=== PATIENT | female | born 1975 | race Caucasian/White ===

== ENCOUNTER → 2017-06-25 | Outpatient (CLI) | payer BC ==
--- NOTE | 2017-06-26 09:56 | MM ---
Reason for exam: screening (asymptomatic). Last mammogram was performed 1 year and 5 months ago. History: Family history of breast cancer in 2 maternal aunts. Took hormonal contraceptives for 6 months beginning at age 17. Physical Findings: A clinical breast exam by your physician is recommended on an annual basis and results should be correlated with mammographic findings. MG Screening Mammo w CAD Bilateral CC and MLO view(s) were taken. Prior study comparison: January 26, 2016, bilateral MG screening mammo w CAD. January 16, 2014, CAD bilateral diagnostic mammogram. February 23, 2012, CAD bilateral diagnostic mammogram. There are scattered fibroglandular densities. There is no discrete abnormality. ASSESSMENT: Negative, BI-RAD 1 RECOMMENDATION: Routine screening mammogram of both breasts in 1 year.
== END | disposition home or self-care (01) ==
LOC: RADMAMWWP 09:11
PROVIDERS: ATTEND Family Medicine
DX: Z12.31 Encounter for screening mammogram for malignant neoplasm of breast (principal)

== ENCOUNTER → 2018-07-11 | Outpatient (CLI) | payer BC ==
--- NOTE | 2018-07-16 09:55 | MM ---
Reason for exam: screening (asymptomatic). Last mammogram was performed 1 year and 1 month ago. History: Family history of breast cancer in 2 maternal aunts. Took hormonal contraceptives for 6 months beginning at age 17. Physical Findings: A clinical breast exam by your physician is recommended on an annual basis and results should be correlated with mammographic findings. MG 3D Screening Mammo W/Cad Bilateral CC and MLO view(s) were taken. Prior study comparison: June 25, 2017, bilateral MG screening mammo w CAD. January 26, 2016, bilateral MG screening mammo w CAD. There are scattered fibroglandular densities. There is a lower outer quadrant mass at middle depth on the left. ASSESSMENT: Incomplete: need additional imaging evaluation, BI-RAD 0 RECOMMENDATION: Special view mammogram of the left breast. If lesion persists on supplemental views, image directed ultrasound is recommended. [facility] will attempt to contact patient to return for supplemental views and ultrasound if indicated.
== END | disposition home or self-care (01) ==
LOC: RADMAMWWP 09:26
PROVIDERS: ATTEND Family Medicine
DX: Z12.31 Encounter for screening mammogram for malignant neoplasm of breast (principal)
CPT/HCPCS: 77063; 77067

== ENCOUNTER → 2018-08-02 | Outpatient (CLI) | payer BC ==
--- NOTE | 2018-08-05 09:52 | MM ---
Reason for exam: additional evaluation requested from abnormal screening. Last mammogram was performed 1 month ago. History: Family history of breast cancer in 2 maternal aunts. Took hormonal contraceptives for 6 months beginning at age 17. Physical Findings: Nurse did not find any significant physical abnormalities on exam. MG 3D Work Up W/Cad LT Spot compression CC, spot compression MLO, and LM view(s) were taken of the left breast. Prior study comparison: July 11, 2018, bilateral MG 3d screening mammo w/cad. June 25, 2017, bilateral MG screening mammo w CAD. There are scattered fibroglandular densities. No distinct lesion persists on additional views. These results were verbally communicated with the patient and result sheet given to the patient on 08/02/18. ASSESSMENT: Benign, BI-RAD 2 RECOMMENDATION: Return to routine screening mammogram schedule for both breasts.
== END | disposition home or self-care (01) ==
LOC: RADMAMWWP 14:52
PROVIDERS: ATTEND Family Medicine
DX: R92.8 Other abnormal and inconclusive findings on diagnostic imaging of breast (principal)
CPT/HCPCS: 77061; 77065

== ENCOUNTER → 2019-08-01 | Outpatient (CLI) | payer BC ==
--- NOTE | 2019-08-02 14:23 | US ---
EXAMINATION TYPE: US pelvis complete transvag DATE OF EXAM: 08/01/2019 COMPARISON: NONE CLINICAL HISTORY: N85.2 Enlarged uterusUterine ablation 2010 enlarged uterus.. TECHNIQUE: Transvaginal (TV) and Transabdominal (TA) . Transabdominal sonographic images of the pel vis were acquired. Transvaginal sonographic images were medically necessary to better assess the fol lowing anatomy: Ovaries Date of LMP: Years ago EXAM MEASUREMENTS: Uterus: 9.5 x 3.5 x 4.3 cm Endometrial Stripe: Not well visualized due to ablation. 1. Uterus: Anteverted Heterogenous 2. Endometrium: Not well visualized due to ablation 3. Right Ovary: Obscured by overlying bowel gas 4. Left Ovary: Obscured by overlying bowel gas 5. Bilateral Adnexa: wnl 6. Posterior cul-de-sac: wnl IMPRESSION: 1. Normal-appearing pelvic ultrasound post uterine endometrial canal ablation
== END | disposition home or self-care (01) ==
LOC: RADUSWWP 16:17
PROVIDERS: ATTEND Family Medicine
DX: N85.2 Hypertrophy of uterus (principal)
CPT/HCPCS: 76830; 76856

== ENCOUNTER → 2019-08-12 | Outpatient (CLI) | payer BC ==
--- NOTE | 2019-08-13 12:12 | MM ---
Reason for exam: screening (asymptomatic). Last mammogram was performed 1 year ago. History: Family history of breast cancer in 2 maternal aunts. Took hormonal contraceptives for 6 months beginning at age 17. Physical Findings: A clinical breast exam by your physician is recommended on an annual basis and results should be correlated with mammographic findings. MG 3D Screening Mammo W/Cad Bilateral CC and MLO view(s) were taken. Prior study comparison: July 11, 2018, bilateral MG 3d screening mammo w/cad. June 25, 2017, bilateral MG screening mammo w CAD. No significant changes when compared with prior studies. ASSESSMENT: Benign, BI-RAD 2 RECOMMENDATION: Routine screening mammogram of both breasts in 1 year.
== END | disposition home or self-care (01) ==
LOC: RADMAMWWP 16:41
PROVIDERS: ATTEND Family Medicine
DX: Z12.31 Encounter for screening mammogram for malignant neoplasm of breast (principal)
CPT/HCPCS: 77063; 77067

== ENCOUNTER 2021-03-21 14:27 | Emergency (ER) | payer BC ==
--- NOTE | 2021-03-21 16:58 | ED ---
General Adult HPI - General Chief complaint: Dizziness Stated complaint: Vision problems,Lightheaded Time Seen by Provider: 03/21/21 16:28 Source: patient Mode of arrival: wheelchair Limitations: no limitations - History of Present Illness Initial comments: Dictation was produced using [employer] dictation software. please excuse any grammatical, word or spelling errors. This patient was cared for during a federal and state declared state of emerge ncy secondary to Covid 19 Chief Complaint: 46-year-old female presents to the emergency department for bradycardia and History of Present Illness: Patient is a 46-year-old female she presents to the emergency department for presyncope and orthostasis. Patient states that she did feel this way for the last 11 years after being placed on a medication for hypertension by her primary care physician. Patient takes bisoprolol. She was seen last week at [facility] for COVID-19 testing because they were exposed to somebody tested positive. During that visit she was found to be bradycardic. She was told to follow-up with cardiology. Patient states today she had an episode were she had tunnel vision and felt like she was going to pass out. She reports that This is not unusual for patient she states she's been having symptoms for the last several years however she felt like she had to come to the emergency department this time because she was told about her bradycardia during her last appointment. Otherwise she feels rather well. She has no pain complaints. The ROS documented in this emergency department record has been reviewed and confirmed by me. Those systems with pertinent positive or negative responses have been documented in the HPI. All other systems are other negative and/or noncontributory. PHYSICAL EXAM: General Impression: Alert and oriented x3, not in acute distress HEENT: Normocephalic atraumatic, extra-ocular movements intact, pupils equal and reactive to light bilaterally, mucous membranes moist. Cardiovascular: Heart regular rate and rhythm Chest: Able to complete full sentences, no retractions, no tachypnea Abdomen: abdomen soft, non-tender, non-distended, no organomegaly Musculoskeletal: Pulses present and equal in all extremities, no peripheral edema Motor: no focal deficits noted Neurological: CN II-XII grossly intact, no focal motor or sensory deficits noted Skin: Intact with no visualized rashes Psych: Normal affect and mood ED course: 46-year-old female presents to the emergency department for presyncope bradycardia vital signs upon arrival shows heart rate of 50, rest of vital signs within acceptable limits. EKG shows sinus bradycardia. There is no evidence of high degree AV block. Laboratory evaluation obtained. CBC, metabolic panel is unremarkable. Cardiac enzymes negative. No electrolyte deficiency. Patient observed in the emergency department with stable bradycardia. She denies that her symptoms have changed in the last several years. She has an appointment in 48 hours with cardiology. Patient would prefer to be discharged. She has a good social situation is at bedside and they're advised to seek medical attention immediately if her symptoms acutely worsened. Otherwise she is told to discontinue use of her blood pressure medication. Patient is agreeable with plan. EKG interpretation: Ventricular rate 48, sinus bradycardia,. 160, QRS 94, QTC 405. No NC prolongation, no QTC prolongation, no ST or T-wave changes noted. Overall, this EKG is unremarkable - Related Data Allergies Allergy/AdvReac Type Severity Reaction Status Date / Time No Known Allergies Allergy Verified 03/21/21 14:43 Review of Systems ROS Statement: Those systems with pertinent positive or pertinent negative responses have been documented in the HPI. ROS Other: All systems not noted in ROS Statement are negative. Past Medical History Past Medical History: Hypertension History of Any Multi-Drug Resistant Organisms: None Reported Past Surgical History: Adenoidectomy, Section, Orthopedic Surgery, Tonsillectomy Additional Past Surgical History / Comment(s): rt knee, finger surgery Past Psychological History: No Psychological Hx Reported Smoking Status: Current every day smoker Past Alcohol Use History: Occasional Past Drug Use History: Marijuana General Exam Limitations: no limitations Course Vital Signs 03/21/21 03/21/21 14:38 18:43 Temperature 98.0 F 98.1 F Pulse Rate 50 L Pulse Rate [ 46 L Cardiovascular Lab Director ] Respiratory 20 16 Rate Blood Pressure 128/74 Blood Pressure 124/66 [Right Arm Sitting] Blood Pressure 135/79 [Right Arm Standing] Blood Pressure 124/71 [Right Arm Supine] O2 Sat by Pulse 99 Oximetry Medical Decision Making - Lab Data Result diagrams: 03/21/21 16:48 03/21/21 16:48 Lab Results 03/21/21 03/21/21 03/21/21 Range/Units 16:48 16:48 16:48 WBC 11.2 H (3.8-10.6) k/uL RBC 4.31 (3.80-5.40) m/uL Hgb 14.0 (11.4-16.0) gm/dL Hct 41.4 (34.0-46.0) % MCV 95.9 (80.0-100.0) fL MCH 32.5 (25.0-35.0) pg MCHC 33.8 (31.0-37.0) g/dL RDW 12.7 (11.5-15.5) % Plt Count 325 (150-450) k/uL MPV 7.6 Neutrophils % 75 % Lymphocytes % 16 % Monocytes % 6 % Eosinophils % 2 % Basophils % 1 % Neutrophils # 8.3 H (1.3-7.7) k/uL Lymphocytes # 1.8 (1.0-4.8) k/uL Monocytes # 0.6 (0-1.0) k/uL Eosinophils # 0.3 (0-0.7) k/uL Basophils # 0.1 (0-0.2) k/uL Sodium 139 (137-145) mmol/L Potassium 4.3 (3.5-5.1) mmol/L Chloride 105 (98-107) mmol/L Carbon Dioxide 25 (22-30) mmol/L Anion Gap 9 mmol/L BUN 14 (7-17) mg/dL Creatinine 0.53 (0.52-1.04) mg/dL Est GFR (CKD-EPI)AfAm >90 (>60 ml/min/1.73 sqM) Est GFR (CKD-EPI)NonAf >90 (>60 ml/min/1.73 sqM) Glucose 92 (74-99) mg/dL Calcium 9.8 (8.4-10.2) mg/dL Magnesium (1.6-2.3) mg/dL Total Bilirubin 0.5 (0.2-1.3) mg/dL AST 26 (14-36) U/L ALT 15 (4-34) U/L Alkaline Phosphatase 75 (38-126) U/L Troponin I <0.012 (0.000-0.034) ng/mL Total Protein 7.5 (6.3-8.2) g/dL Albumin 4.5 (3.5-5.0) g/dL 03/21/21 Range/Units 16:48 WBC (3.8-10.6) k/uL RBC (3.80-5.40) m/uL Hgb (11.4-16.0) gm/dL Hct (34.0-46.0) % MCV (80.0-100.0) fL MCH (25.0-35.0) pg MCHC (31.0-37.0) g/dL RDW (11.5-15.5) % Plt Count (150-450) k/uL MPV Neutrophils % % Lymphocytes % % Monocytes % % Eosinophils % % Basophils % % Neutrophils # (1.3-7.7) k/uL Lymphocytes # (1.0-4.8) k/uL Monocytes # (0-1.0) k/uL Eosinophils # (0-0.7) k/uL Basophils # (0-0.2) k/uL Sodium (137-145) mmol/L Potassium (3.5-5.1) mmol/L Chloride (98-107) mmol/L Carbon Dioxide (22-30) mmol/L Anion Gap mmol/L BUN (7-17) mg/dL Creatinine (0.52-1.04) mg/dL Est GFR (CKD-EPI)AfAm (>60 ml/min/1.73 sqM) Est GFR (CKD-EPI)NonAf (>60 ml/min/1.73 sqM) Glucose (74-99) mg/dL Calcium (8.4-10.2) mg/dL Magnesium 1.7 (1.6-2.3) mg/dL Total Bilirubin (0.2-1.3) mg/dL AST (14-36) U/L ALT (4-34) U/L Alkaline Phosphatase (38-126) U/L Troponin I (0.000-0.034) ng/mL Total Protein (6.3-8.2) g/dL Albumin (3.5-5.0) g/dL Disposition Clinical Impression: Bradycardia Disposition: HOME SELF-CARE Condition: Fair Instructions (If sedation given, give patient instructions): Bradycardia (ED) Additional Instructions: 1. Discontinue use of your blood pressure medication 2. Follow up with cardiology as scheduled 3. Please seek immediate medical attention if your symptoms acutely worsen. 4. Do not perform any exertional activity until cleared by cardiology Is patient prescribed a controlled substance at d/c from ED?: No Referrals: Carlos Manuel Proctor DO [Primary Care Provider] - 1-2 days Time of Disposition: 19:05
[2021-03-21 17:01] LABS: Basophils # (A) 0.1 k/uL (0-0.2); Basophils % (A) 1 %; Eosinophils # (A) 0.3 k/uL (0-0.7); Eosinophils % (A) 2 %; HCT 41.4 % (34.0-46.0); Lymphocytes # (A) 1.8 k/uL (1.0-4.8); Lymphocytes % (A) 16 %; MCH 32.5 pg (25.0-35.0); MCHC 33.8 g/dL (31.0-37.0); MCV 95.9 fL (80.0-100.0); Mean Platelet Volume 7.6; Monocytes # (A) 0.6 k/uL (0-1.0); Monocytes % (A) 6 %; Neutrophils # (A) 8.3 k/uL (1.3-7.7); Neutrophils % (A) 75 %; Platelet Count 325 k/uL (150-450); RBC 4.31 m/uL (3.80-5.40); RDW 12.7 % (11.5-15.5); WBC 11.2 k/uL (3.8-10.6)
[2021-03-21 17:15] LABS: ALT 15 U/L (4-34); AST 26 U/L (14-36); African American GFR (CKD) >90 (>60 ml/min/1.73 sqM); Albumin 4.5 g/dL (3.5-5.0); Alkaline Phosphatase 75 U/L (38-126); Anion Gap 9 mmol/L; Blood Urea Nitrogen 14 mg/dL (7-17); Calcium 9.8 mg/dL (8.4-10.2); Carbon Dioxide 25 mmol/L (22-30); Chloride 105 mmol/L (98-107); Glucose 92 mg/dL (74-99); Non-African American GFR(CKD) >90 (>60 ml/min/1.73 sqM); Potassium 4.3 mmol/L (3.5-5.1); Sodium 139 mmol/L (137-145); Total Bilirubin 0.5 mg/dL (0.2-1.3); Total Protein 7.5 g/dL (6.3-8.2)
[2021-03-21 19:23] VITALS: BP 121/65; PULSE 50; RESP 18; TEMP 98.7
== END 2021-03-21 19:30 | disposition home or self-care (01) ==
LOC: EC 14:27
DX: R00.1 Bradycardia, unspecified (principal); I10 Essential (primary) hypertension; F17.200 Nicotine dependence, unspecified, uncomplicated; F12.90 Cannabis use, unspecified, uncomplicated; Z20.822 Contact with and (suspected) exposure to COVID-19
CPT/HCPCS: 36415; 80053; 83735; 84484; 85025; 99284

== ENCOUNTER → 2021-04-15 | Outpatient (CLI) | payer BC ==
--- NOTE | 2021-04-19 08:11 | MM ---
Reason for exam: screening (asymptomatic). Last mammogram was performed 1 year and 8 months ago. History: Family history of breast cancer in 2 maternal aunts. Took hormonal contraceptives for 6 months beginning at age 17. Physical Findings: A clinical breast exam by your physician is recommended on an annual basis and results should be correlated with mammographic findings. MG 3D Screening Mammo W/Cad Bilateral CC and MLO view(s) were taken. Prior study comparison: August 12, 2019, bilateral MG 3d screening mammo w/cad. August 02, 2018, left breast MG 3d work up w/cad LT. There are scattered fibroglandular densities. ASSESSMENT: Benign, BI-RAD 2 RECOMMENDATION: Routine screening mammogram of both breasts in 1 year.
== END | disposition home or self-care (01) ==
LOC: RADMAMWWP 14:45
PROVIDERS: ATTEND Family Medicine
DX: Z12.31 Encounter for screening mammogram for malignant neoplasm of breast (principal); Z80.3 Family history of malignant neoplasm of breast
CPT/HCPCS: 77063; 77067

== ENCOUNTER → 2022-01-25 | Outpatient (CLI) | payer BC ==
--- NOTE | 2022-01-25 12:50 | XR ---
EXAMINATION TYPE: XR abdomen 2V DATE OF EXAM: 01/25/2022 COMPARISON: NONE HISTORY: Pain TECHNIQUE: Single supine KUB image of the abdomen is obtained FINDINGS: Small bowel demonstrates no evidence for dilatation or air fluid levels. Gas and fecal material is seen in non-distended colon. No convincing evidence for pneumoperitoneum. No unusual calcifications. The lung bases are clear. The osseous structures are intact. IMPRESSION: 1. Overall nonobstructive bowel gas pattern.
== END | disposition home or self-care (01) ==
LOC: RADXRMAIN 11:50
PROVIDERS: ATTEND Nurse Practitioner Family
DX: R10.84 Generalized abdominal pain (principal)
CPT/HCPCS: 74019

== ENCOUNTER → 2024-09-30 | Outpatient (CLI) | payer BC ==
--- NOTE | 2024-09-30 08:46 | MM ---
Reason for Exam: Screening (asymptomatic). Last mammogram was performed 3 year(s) and 6 month(s) ago. Patient History: Menarche at age 11. First Full-Term at age 16. Postmenopausal. Hormonal Contraceptives for 6 months starting at age 17. Maternal aunt had breast cancer. Maternal aunt had breast cancer. Risk Values: Erica 5 year model risk: 0.7%. NCI Lifetime model risk: 6.4%. Prior Study Comparison: 08/02/2018 Left Diagnostic Mammogram, [facility]. 08/12/2019 Bilateral Screening Mammogram, [facility]. 04/15/2021 Bilateral Screening Mammogram, [facility]. Tissue Density: The breasts are heterogeneously dense, which may obscure small masses. Findings: Analyzed By CAD. There is no suspicious group of microcalcifications or new suspicious mass in either breast. Overall Assessment: Benign, BI-RAD 2 Management: Screening Mammogram of both breasts in 1 year. . Patient should continue monthly self-breast exams. A clinical breast exam by your physician is recommended on an annual basis. This exam should not preclude additional follow-up of suspicious palpable abnormalities. Note on Erica scores and lifetime risk: 1. A Erica score greater than 3% is considered moderate risk. If this is the case, consider specialist referral to assess eligibility for a risk reducing agent. 2. If overall lifetime risk for the development of breast cancer is 20% or higher, the patient may qualify for future screening with alternating mammogram and breast MRI. [facility], , 09/30/2024 8:43 AM. Electronically signed and approved by: Nicolás Zepeda M.D. Radiologis
== END | disposition home or self-care (01) ==
LOC: RADMAMWWP 07:25
PROVIDERS: ATTEND Family Medicine
DX: Z12.31 Encounter for screening mammogram for malignant neoplasm of breast (principal); Z78.0 Asymptomatic menopausal state; Z80.3 Family history of malignant neoplasm of breast; R92.333 Mammographic heterogeneous density, bilateral breasts
CPT/HCPCS: 77063; 77067

== ENCOUNTER → 2024-10-16 | Day surgery (SDC) | payer BC ==
[2024-10-15 08:38] VITALS: BMI 23.8
[~2024-10-16] MED LIST: LIDOCAINE 1% (10MG/ML) FOR IV START INTRADERMA PRN; PROPOFOL 10 MG/ML 20 ML VIAL IV ONE
[2024-10-16] MEDS: IV FLUID CONTINUATION 1,000 ML IV ONE (14:13)
[2024-10-16 14:16] VITALS: RESP 18; TEMP 97
[2024-10-16] MEDS: LACTATED RINGERS 1,000 ML IV SCH (14:22)
--- NOTE | 2024-10-16 15:31 | P.OP ---
Date of Procedure: 10/16/24 Preoperative Diagnosis: 1. Epigastric Pain 2. Screening Colonoscopy Postoperative Diagnosis: 1. Gastritis 2. Diminutive Polyp Right Colon Procedure(s) Performed: 1. EGD with Biopsy 2. Colonoscopy with Polyp Biopsy Anesthesia: SANTA Surgeon: Mohit Gary Pathology: other (Polyp Biopsy) Condition: stable Disposition: PACU Description of Procedure: Informed consent was obtained. The procedure, its risks, benefits, and alternatives were discussed. The patient was placed in the left lateral decubi tus position.. The patient was sedated. The endoscope was inserted into the oropharynx and guided under direct vision into the esophagus, stomach, and duodenum. The duodenal bulb and second portion were unremarkable. The scope was withdrawn to the stomach and retroflexed. There was no increased fluid, food or secretions in the upper gastrointestinal tract. There was very minimal, nonspecific, patchy antral erythema and some mild gastritis noted. Biopsies were obtained for Helicobacter pylori. No erosions or ulcers. The scope was withdrawn to the esophagus. No Barretts or esophagitis. The patient tolerated the procedure very well. A colonoscopy was performed next. After informed consent was obtained, the patient was placed in the left lateral position and the patient was sedated. Monitoring was provided throughout the entire procedure. Digital rectal exam was performed revealing normal sphincter tone and no external hemorrhoids. The colonoscope was inserted into rectum and advanced under direct visualization, without difficulty, to the cecum, where the cecal strap, appendiceal orifice, and the ileocecal valve were identified. The quality of the preparation was good. The colonoscope was then withdrawn while carefully examining the mucosa. The colonic mucosa appeared normal with normal vascularity and haustral markings. No masses, AVM/s or diverticula were seen. There was a small sigmoid polyp and a cold biopsy was performed. On retroflexed view in the rectum, there were no internal hemorrhoids. The endoscope was removed and the procedure terminated. The patient tolerated the procedure well without complications.
[2024-10-16 15:58] VITALS: BP 105/59; PULSE 56
== END ==
LOC: ORWHC2ENDO 13:44
PROVIDERS: ATTEND Surgery
DX: Z12.11 Encounter for screening for malignant neoplasm of colon (principal); K63.5 Polyp of colon; K29.50 Unspecified chronic gastritis without bleeding; K31.89 Other diseases of stomach and duodenum; K21.9 Gastro-esophageal reflux disease without esophagitis; I10 Essential (primary) hypertension; Z72.0 Tobacco use; Z79.899 Other long term (current) drug therapy
CPT/HCPCS: 88305; 45380; 43239; J2704